=== PATIENT | female | born 1965 | race Caucasian/White ===

== ENCOUNTER 2022-03-19 17:54 | Emergency (ER) | payer OTHER, SELFPAY ==
[2022-03-19 18:46] VITALS: BP 142/82; PULSE 105; RESP 16; TEMP 36.8; O2SAT 97
--- NOTE | 2022-03-19 19:18 | ED.URI ---
HPI - URI/Sore Throat General Chief Complaint: Upper Respiratory Infection Stated Complaint: coughing; sore throat Time Seen by Provider: 03/19/22 19:18 Source: patient and RN notes reviewed Mode of arrival: ambulatory Limitations: no limitations History of Present Illness HPI Narrative: 56 y/o female presented for c/o dry cough and congestion with runny nose for about 3 days. Endorses history of asthma. She states she feels like he is wheezing during coughing episodes. She currently denies shortness of breath, nausea, vomiting or diarrhea, fevers or chills. She has not taking anything for symptoms. She denies sick contacts. MD elicited complaint: cough Related Data Home Medications Medication Instructions Recorded Confirmed esomeprazole magnesium 40 mg 20 mg PO DAILY 05/03/21 03/19/22 capsule,delayed release (Nexium) brivaracetam 25 mg tablet 25 mg PO BID 03/19/22 03/19/22 (Briviact) gabapentin 300 mg capsule 300 mg PO BID 03/19/22 03/19/22 Allergies Allergy/AdvReac Type Severity Reaction Status Date / Time aspirin Allergy Unknown GERD Verified 03/19/22 19:02 Review of Systems Review of Systems: Per HPI [facility] Past Medical History Medical History Acute non-recurrent frontal sinusitis Anemia Asthma Bilateral headaches Body mass index [BMI] 35.0-35.9, adult (02/28/16) Body mass index [BMI] 37.0-37.9, adult (07/31/16) Body mass index [BMI] 39.0-39.9, adult (03/03/17) Epilepsy GERD (gastroesophageal reflux disease) Memory loss URI with cough and congestion Family History Family History Mother Family history of malignant melanoma Father Family history of malignant neoplasm of urinary bladder Hypertension Sibling Family history of diabetes mellitus in first degree relative Grandparent Diabetes mellitus Social History Social History Smoking status: Never smoker Second hand tobacco smoke exposure: No Alcohol intake: never Substance use: never Gender identity (if verbalized by the patient): Female Exam Narrative: GENERAL: well-appearing, nontoxic EYES: PERRLA, conjunctivae clear ENT: Mucous membranes moist. TM pearly licea with dull light reflex bilaterally; no tragal tenderness. Oropharynx without lesions or exudate, no drooling, no hoarseness, no trismus, uvula midline. NECK: Supple. No lymphadenopathy CHEST: Clear to auscultation, breath sounds equal. HEART: Regular rate and rhythm. No murmur heard. SKIN: Warm, dry, no rash. NEURO: Alert and oriented x3. PSYCH: Normal mood and affect Course Course Emergency Course: Patient is aware of diagnosis, understands and agrees to treatment plan. Anticipatory guidance given. Patient agrees to follow-up as directed and is aware of reasons to seek care at the emergency department. Portions of this record may have been created with voice recognition software Level of Care: Express Care Visit Vital Signs Vital signs: Vital Signs Temperature 98.2 F 03/19/22 18:46 Pulse Rate 105 H 03/19/22 18:46 Respiratory Rate 16 03/19/22 18:46 Blood Pressure 142/82 H 03/19/22 18:46 Pulse Oximetry 97 03/19/22 18:46 Temperature 98.2 F 03/19/22 18:46 Pulse Rate 105 H 03/19/22 18:46 Respiratory Rate 16 03/19/22 18:46 Blood Pressure 142/82 H 03/19/22 18:46 Pulse Oximetry 97 03/19/22 18:46 Oxygen Delivery Room Air 03/19/22 18:50 reviewed MDM - URI/Sore Throat MDM Narrative Medical decision making narrative: Advised supportive measures and signs/symptoms to go to the ER. Pt is appropriate for outpt treatment and f/u. Differential Diagnosis Differential diagnosis: Likely upper respiratory infection, sinusitis and viral infection Discharge Plan Discharge Clinical Impression: Upper respiratory infection Patient Disposition: Home
== END 2022-03-19 19:30 | disposition home or self-care (01) ==
PROVIDERS: Emergency Provider Nurse Practitioner Family; PCP Emergency Medicine
DX: J06.9 Acute upper respiratory infection, unspecified (principal); K21.9 Gastro-esophageal reflux disease without esophagitis; J45.909 Unspecified asthma, uncomplicated; G40.909 Epilepsy, unspecified, not intractable, without status epilepticus
CPT/HCPCS: 99213; G0463

== ENCOUNTER 2023-09-24 12:10 | Emergency (ER) | payer OTHER, SELFPAY ==
[2023-09-24 12:25] VITALS: BP 130/84; PULSE 83; RESP 16; TEMP 36.7; O2SAT 99
--- NOTE | 2023-09-24 12:26 | ED.BACK ---
HPI - Back Pain/Injury General Chief Complaint: Back Pain/Injury Stated Complaint: L SIDE BACK OR HIP PAIN Time Seen by Provider: 09/24/23 12:26 Source: patient and RN notes reviewed Mode of arrival: ambulatory Limitations: no limitations History of Present Illness HPI Narrative: 58 year old female presents with concern for left low back pain that radiates down the leg. She denies any injury or trauma. Reports it is painful when she lays down for a long time. Reports certain movements make the pain worse. She denies weakness in any extremity. Denies loss of bowel or bladder function. Denies parent anal anesthesia. Denies fever, abdominal pain. She denies rash. She reports she has taken aspirin without relief. MD elicited complaint: back pain Related Data Home Medications Medication Instructions Recorded Confirmed brivaracetam 25 mg tablet 25 mg PO BID 03/19/22 03/19/22 (Briviact) gabapentin 300 mg capsule 300 mg PO BID 03/19/22 03/19/22 albuterol sulfate 90 mcg/actuation inhalation 09/24/23 aerosol inhaler budesonide-formoterol HFA 80 inhalation 09/24/23 mcg-4.5 mcg/actuation aerosol inhaler (Symbicort) ezetimibe 10 mg tablet mg 09/24/23 09/24/23 topiramate 50 mg tablet mg 09/24/23 Allergies Allergy/AdvReac Type Severity Reaction Status Date / Time aspirin Allergy Unknown GERD Verified 09/24/23 12:21 Review of Systems Review of Systems: CONSTITUTIONAL: Denies malaise, chills, sweats, or fever. CARDIOVASCULAR: Denies chest pain, palpitations, or edema. RESPIRATORY: Denies cough or dyspnea. GASTROINTESTINAL: Denies abdominal pain, nausea, vomiting, diarrhea, loss of bowel function GENITOURINARY: Denies dysuria, hematuria, frequency, loss of bladder function. SKIN: Denies rash or itching. MUSCULOSKELETAL: Reports left low back pain NEUROLOGIC: Denies numbness, weakness, or headache. All systems reviewed & are unremarkable except as noted in HPI and below PMFSH Past Medical History Medical History Acute non-recurrent frontal sinusitis Anemia Asthma Bilateral headaches Body mass index [BMI] 35.0-35.9, adult (02/28/16) Body mass index [BMI] 37.0-37.9, adult (07/31/16) Body mass index [BMI] 39.0-39.9, adult (03/03/17) Epilepsy GERD (gastroesophageal reflux disease) Memory loss URI with cough and congestion Family History Family History Mother Family history of malignant melanoma Father Family history of malignant neoplasm of urinary bladder Hypertension Sibling Family history of diabetes mellitus in first degree relative Grandparent Diabetes mellitus Social History Social History Smoking status: Never smoker Second hand tobacco smoke exposure: No Alcohol intake: never Substance use: never Gender identity (if verbalized by the patient): Female Comments At time of signature, agree with nursing past medical, surgical, social and family history. There is no relevant family history pertinent to the presenting complaint Exam Narrative: GENERAL: Well-appearing, well-nourished, and in no acute distress. HEAD: Normocephalic, atraumatic. EYES: PERRLA and EOMI. NECK: Supple. No lymphadenopathy. CHEST: Clear to auscultation. No respiratory distress. HEART: Regular rate and rhythm. Distal pulses palpable and equal, cap refill <3 seconds ABDOMEN: Soft, nontender, nondistended, normal active bowel sounds, no palpable or pulsatile masses. No CVA tenderness MUSCULOSKELETAL: Normal range of motion and strength in all extremities; 5/5 strength with hip flexion and extension, dorsiflexion and extension, knee flexion and extension, plantar flexion and extension. Normal sensation in dermatomal distributions with sensitivity to light touch and pain. No midline back tenderness to palpation. No paraspinal tenderness. Transfers
== END 2023-09-24 12:43 | disposition home or self-care (01) ==
PROVIDERS: Emergency Provider Nurse Practitioner; PCP Family Medicine
DX: M54.50 Low back pain, unspecified (principal); K21.9 Gastro-esophageal reflux disease without esophagitis; J45.909 Unspecified asthma, uncomplicated; G40.909 Epilepsy, unspecified, not intractable, without status epilepticus
CPT/HCPCS: 99213; G0463